=== PATIENT | female | born 1980 | race Caucasian/White ===

== ENCOUNTER 2022-09-17 07:21 | Observation (INO) ==
--- NOTE | 2022-09-10 13:58 | Anesthesiology Consultation ---
Date of Service September 10, 2022 Assessment & Plan (1) Encounter for pre-operative examination: Plan - COVID screening: Per kiln mechanic on 09/10/2022: Travel screen negative, no known COVID-19 positive contacts or current COVID-19 related symptoms in past 2 weeks. To surgeon's discretion if preop COVID testing is needed. Chart Review Chart Review: Acceptable Risk for Surgery and Patient NOT seen in Pre Admission Testing History Surgery Operation Date: 09/17/22 07:15 Proposed Procedures p Bilateral Simple Mastectomy, - Devaughn Higgins MD s Right Sided Axillary [place] Lymph Node Biopsy - Devaughn Higgins MD s Breast Augmentation - Alba Betancur MD Height/Weight Height: 5 ft 3 in Weight: 58.06 kg Allergies Allergy/AdvReac Type Severity Reaction Status Date / Time adhesive AdvReac Intermediate skin Verified 09/10/22 13:26 irritation Medications Home Medications Medication Instructions Recorded Confirmed Last Taken aprepitant 80 mg capsule (Emend) 40 mg PO DAILY 1 day #1 cap 09/08/22 09/10/22 Unknown cephalexin 500 mg capsule 500 mg PO TID 2 weeks #42 caps 09/08/22 09/10/22 Unkno wn oxycodone-acetaminophen 5 mg-325 1 tab PO Q4H PRN pain #18 tabs 09/08/22 09/10/22 Unknown mg tablet (Endocet) ibuprofen 200 mg tablet (Advil) 200 mg PO BID PRN cramping 09/10/22 09/10/22 U nknown Past Medical History Medical History Cancer of right breast July 2022 History of COVID-19 asymptomatic December 2021 Past Family History Family History Mother Breast cancer Grandmother (Maternal) Ovarian cancer Grandmother (Paternal) Breast cancer Other No family history of adverse response to anesthesia Past Surgical History Surgical History Delivery by section History of breast biopsy bilateral History of tonsillectomy Social History Smoking Status: Former smoker tobacco type: e-cigarettes Do You Dip or Chew Tobacco: No Smoking End Date: 08/17/22 Hx Alcohol Use: Yes Alcohol type: beer alcohol intake frequency: holidays/special occasions only Hx Substance Use: Yes (occasional marijuana) substance use type: marijuana Last Used Substance Other:: 09/03/22 Lab Results Anesthesia Preop Results Results Anesthesia Widget: WBC 6.08 K/ul (4.8-10.8) 09/08/22 Hgb 12.9 g/dl (12.0-16.0) 09/08/22 Hct 38.0 % (34.1-44.9) 09/08/22 Plt 225 K/uL (130-400) 09/08/22 Na 138 mmol/L (136-145) 09/08/22 K 3.9 mmol/L (3.5-5.1) 09/08/22 Cl 106 mmol/L (98-107) 09/08/22 CO2 27 mmol/L (21-32) 09/08/22 BUN 14 mg/dl (6-23) 09/08/22 Creat 0.67 mg/dl (0.6-1.2) 09/08/22 Glucose Level 85 mg/dl (70-99(Fasting)) 09/08/22 PT 10.9 Seconds (9.0-12.0) 09/08/22 PTT 26.1 Seconds (21.0-31.0) 09/08/22 INR 1.0 (0.9-1.1) 09/08/22
[~2022-09-17 07:21] MED LIST: LR 15ML/HR IV SCH; ceFAZolin 2000MG 2,000 MG/15 ML SYR IV SCH
[2022-09-17] MEDS: ENOXAPARIN INJ 30 MG/0.3 ML SYR SQ SCH (08:12)
--- NOTE | 2022-09-17 09:26 | History & Physical Bridge Note ---
Date of Service September 17, 2022 History & Physical Bridge Note I have examined the patient, reviewed the History & Physical and in the interval since the performance of the History & Physical I have noted the following changes of clinical significance: no changes noted
[2022-09-17] MEDS ORDERED: CISATRACURIUM BESYLATE IV SOLN 2 MG/ML 10 ML VIAL IV ONE (10:11)
[2022-09-17] MEDS ORDERED: PROPOFOL IV EMULSION 10 MG/ML 20 ML VIAL IV ONE (10:11)
[2022-09-17] MEDS ORDERED: MIDAZOLAM HCL 1 MG/ML 2ML VIAL ONE (10:12)
[2022-09-17] MEDS ORDERED: fentaNYL citrate 100 MCG/2 ML VIAL ONE ×3 (10:12→12:38)
[2022-09-17] MEDS ORDERED: GENTAMICIN SULFATE 40 MG/ML 2 ML VIAL ONE (10:37)
[2022-09-17] MEDS ORDERED: LIDOCAINE 1%/EPINEPHRINE 1:100,000 50 ML VIAL ONE (10:38)
[2022-09-17] MEDS ORDERED: ceFAZolin 330 MG/ML 1 GM VIAL ONE (10:38)
[2022-09-17] MEDS ORDERED: METHYLENE BLUE 0.5% 10 ML VIAL ONE (10:38)
[2022-09-17] MEDS ORDERED: BUPIVACAINE 0.25% 30 ML VIAL ONE (10:38)
[2022-09-17] MEDS ORDERED: BUPIVACAINE/EPINEPHRINE 0.5% MPF 1:200,000 30 ML VIAL ONE (10:54)
[2022-09-17] MEDS ORDERED: DEXAMETHASONE SOD INJ 4 MG/ML VIAL ONE (11:39)
[2022-09-17] MEDS ORDERED: ONDANSETRON INJ 2 MG/ML 2 ML VIAL ONE (11:39)
--- NOTE | 2022-09-17 14:03 | Post Operative Brief Note ---
Immediate Post Op Note v1 Date of Surgery September 17, 2022 Pre & Post Diagnosis Operation Date: 09/17/22 10:00 Pre-Op Diagnosis: Ductal Carcinoma in Situ of Right Breast I identified the patient and participated in the time-out.: Yes Procedure Operation Date: 09/17/22 10:00 Actual Procedures p Bilateral Simple Mastectomy, Right Sided Axillary [place] Lymph Node Biopsy(Bilateral) - Devaughn Higgins MD s Bilateral First Stage Immediate Breast Reconstruction with Tissue Expanders and Acellular Dermal Matrix(Bilateral) - Alba Betancur MD Surgeon Devaughn Higgins MD Forest Ecologist Cookie Fernandez PA-C; assisted with tissue retraction and exposure Estimated Blood Loss 10 Findings Consistent with Post-Op Diagnosis
--- NOTE | 2022-09-17 14:11 | Operative Report ---
Post Operative Report Pre & Post Diagnosis Operation Date: 09/17/22 10:00 Pre-Op Diagnosis: Ductal Carcinoma in Situ of Right Breast I identified the patient and participated in the time-out.: Yes Procedure Operation Date: 09/17/22 10:00 Actual Procedures p Bilateral Simple Mastectomy, Right Sided Axillary [place] Lymph Node Biopsy(Bilateral) - Devaughn Higgins MD s Bilateral First Stage Immediate Breast Reconstruction with Tissue Expanders and Acellular Dermal Matrix(Bilateral) - Alba Betancur MD Surgeon Devaughn Higgins MD Parts Classifier Cookie Fernandez PA-C; assisted with tissue retraction and exposure Estimated Blood Loss 10 Findings Consistent with Post-Op Diagnosis [place] node x1 right axilla Specimens Left breast mastectomy Right breast mastectomy Right axillary sentinel lymph node -count 1590 Anesthesia Type General Complications No immediate complications Description of Procedure Patient taken to the operating room, placed supine on the operating table. A timeout was performed, perioperative antibiotics were administered, SCD boots were placed. After adequate anesthesia and analgesia was obtained, a Ignacio catheter was placed, and the bilateral chest and axilla was prepped and draped in the normal sterile fashion. The incision lines for the bilateral mastectomy had been marked in the preoperative area. Local anesthetic was injected into and around the incision sites in the bilateral breast. We began on the left. Incision was made with 15 blade scalpel and the ellipse that had been previously marked. Flaps were raised between the breast tissue and the overlying subcutaneous tissue. This was done at 363 fashion. The limits of the dissection were the clavicle/pectoralis major muscle superiorly, the sternum medially, the fascia of the rectus abdominis muscle inferiorly, and the axillary fat pad laterally. Small bleeders were clamped and tied with 3-0 silk suture. Once dissection was complete, the breast tissue was removed from the underlying pectoralis major muscle, taking care to remove the pectoralis fascia along with the specimen. It was removed from body, oriented with sutures and ink, and sent off field for specimen. Attention was turned to hemostasis which was excellent. Some additional tissue was taken and spots of thickening on the flaps. These were sent off with the specimen. Attention was turned to the right axilla. Incision was made in a transverse fashion with a 15 blade scalpel. The level of the clavipectoral fascia was attained, and this was entered. A self-retaining retractor was placed. Using the neoprobe, I was able to identify the sentinel node. This was dissected free circumferentially, the lymphatics were clamped, and it was removed from the body. Lymphatics were tied with 3-0 silk suture. The lymph node count was 1590. The background radiation was less than 20. No palpable lymph nodes were noted in the axilla. No further lymph nodes were taken. We then turned our attention to the right breast. Incision was made with 15 blade scalpel and the ellipse that had been previously marked. Flaps were raised between the breast tissue and the overlying subcutaneous tissue. This was done at 363 fashion. The limits of the dissection were the clavicle/pecto ralis major muscle superiorly, the sternum medially, the fascia of the rectus abdominis muscle inferiorly, and the axillary fat pad laterally. Small bleeders were clamped and tied with 3-0 silk suture. Once dissection was complete, the breast tissue was removed from the underlying pectoralis major muscle, taking care to remove the pectoralis fascia along with the specimen. It was removed from body, oriented with sutures and ink, and sent off field for specimen. Attention was turned to hemostasis which was excellent. Some additional tissue was taken and spots of thickening on the flaps. These were sent off with the specimen. At this point, the case was turned over to Dr. Betancur of plastic surgery who commenced with bilateral breast reconstruction. The details of this operation will be dictated in a separate operative note. At the end of the mastectomy portion of the surgery, all instrument needle and sponge counts were correct. My corporate legal assistant was necessary throughout the procedure for tissue retraction, possible camera operation, and closure of the wounds. I understand that section 1842(b)(7)(D) of the Social Security act generally prohibits Medicare physician fee schedule payment for the services of assistants at surgery in teaching hospitals when qualified residents are available to furnish such services. I certify that the services for which payment is claimed were medically necessary and that no qualified resident was available to perform the services. I further understand that these services are subject to postpayment review by the Medicare carrier. I attest to the content of the Intraoperative Record and any orders documented therein. Any exceptions are noted below.
[2022-09-17] MEDS ORDERED: ceFAZolin SPECIAL PROCEDURE STOCK 1 GM ADDVIAL IV ONE (15:31)
--- NOTE | 2022-09-17 16:09 | Post Operative Brief Note ---
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 Post-Op Diagnosis: Ductal Carcinoma in Situ of Right Breast I identified the patient and participated in the time-out.: Yes Procedure Operation Date: 09/17/22 10:00 Actual Procedures p Bilateral Simple Mastectomy, Right Sided Axillary [place] Lymph Node Biopsy(Bilateral) - Devaughn Higgins MD s Bilateral First Stage Immediate Breast Reconstruction with Tissue Expanders and Acellular Dermal Matrix(Bilateral) - Alba Betancur MD Surgeon Alba Betancur MD Art Display Maker Cookie Fernandez PA-C; assisted with tissue retraction and exposure Estimated Blood Loss 15 Findings Consistent with Post-Op Diagnosis mild ecchymosis right superior flap Specimens Specimen Description: A. Left breast tissue, long stitch lateral, short superior, ink margin deep B. Right axillary sentinel lymph node C. Right breast tissue, long stitch lateral, short superior, ink margin deep Drains Ignacio Catheter and Mando-Berumen Drain (bilateral breasts) Anesthesia Type General Complications none
[2022-09-17] MEDS ORDERED: DROPERIDOL 5 MG/2 ML VIAL IV STA (16:16)
--- NOTE | 2022-09-17 16:19 | Operative Report ---
PG Post Operative Report Pre & Post Diagnosis Operation Date: 09/17/22 10:00 Pre-Op Diagnosis: Ductal Carcinoma in Situ of Right Breast Post-Op Diagnosis: Ductal Carcinoma in Situ of Right Breast I identified the patient and participated in the time-out.: Yes Procedure Operation Date: 09/17/22 10:00 Actual Procedures p Bilateral Simple Mastectomy, Right Sided Axillary [place] Lymph Node Biopsy(Bilateral) - Devaughn Higgins MD s Bilateral First Stage Immediate Breast Reconstruction with Tissue Expanders and Acellular Dermal Matrix(Bilateral) - Alba Betancur MD Surgeon Alba Betancur MD Grain I Farmworker Cookie Fernandez PA-C; assisted with tissue retraction and exposure Estimated Blood Loss 15 Findings Consistent with Post-Op Diagnosis Specimens none Drains JPx2 Anesthesia Type General Complications none Indications s/p bilateral mastectomies desiring breast reconstruction Description of Procedure The patient was marked in the preoperative area. Skin sparing mastectomy flaps were marked. She underwent bilateral mastectomy and right SLN biopsy with Dr. Higgins. After completion of the mastectomies, I began the bilateral reconstruction. I began with the left side. Hemostasis was achieved with electrocautery. Pectoralis major muscle was then identified and elevated. Inferior attachments of pectoralis major muscle were divided along the ribs medially to the sternum. None of the sternal attachments were dissected. The retropectoral plane was then developed using electrocautery. Hemostasis was achieved using cautery. Once adequate dissection had been performed, I then chose a piece of perforated medium contour thick AlloDerm which was then used to create a sling for the lower pole. This was first sutured to the inframammary fold using 2-0 Vicryl U stitches. Pocket was then measured and base diameter was 11 cm. Therefore, I selected a Allergan style 133SMVT tissue with base diameter of 11 cm, fill volume 250 cc. The supply assistant was prepared and air was aspirated out. The supply assistant was soaked in antibiotic irrigation and Vashe wash followed by antibiotic irrigation was used to irrigate the pocket. All instruments were wiped down and gloves were changed. Coach Cleaner was placed along the inframammary fold as medially as possible. Suture tabs were sutured down to underlying periosteum and fascia using a 2-0 Vicryl suture. The remainder of the supply assistant was then enclosed using 2-0 Vicryl running suture to reapproximate the AlloDerm which had been trimmed to size and this was approximated to the pectoralis major muscle. Laterally, this was closed down using 2-0 Vicryl interrupted sutures as well. A 15-[place] Amilcar drain was placed in the wound and brought out through a separate stab incision.Wound was reapproximated using 3-0 PDS superficial dermal suture and 3-0 Monocryl running subcuticular suture. Drain was sutured in place using 3-0 nylon. The fill port was identified using the magna-finder and accessed using a Fourte needle. A total of 75 mL were placed. An identical procedure was performed on the right side. The right axillary incision was closed using 2-0 vicryl deep dermal suture, 3-0 PDS superficial dermal suture, 3-0 monocryl running subcuticular suture. Dermabond was applied to the axillary incision. The drain site was dressed using Acticoat dry dressing and Tegaderm. Prevena Hawa vac dressings were placed bilaterally. Procedure was tolerated well. Cookie Fernandez PA-C was present and scrubbed throughout the entire procedure and was instrumental in providing exposure during elevation of pectoralis muscle and suturing of the AlloDerm as well as filling expanders and assisting in wound closure. I attest to the content of the Intraoperative Record and any orders documented therein. Any exceptions are noted below.
[2022-09-17] MEDS ORDERED: PHENYLEPHRINE 100MCG/ML 5ML SYR IV PRN (16:25)
[2022-09-17] MEDS ORDERED: ePHEDrine sulfate 50 MG/ML AMP IV PRN (16:25)
[2022-09-17] MEDS ORDERED: LABETALOL HCL IV 5 MG/ML 20ML IV PRN (16:25)
[2022-09-17] MEDS ORDERED: HYDROmorphone INJ 1 MG/ML SYRINGE IV PRN (16:25)
[2022-09-17] MEDS ORDERED: ATROPINE SULFATE 0.1 MG/ML 10ML SYR IV PRN (16:25)
[2022-09-17] MEDS ORDERED: PROMETHAZINE HCL 12.5 MG in SODIUM CHLORIDE 0.9% 50 ML IV STA (16:31)
[2022-09-17] MEDS ORDERED: PROMETHAZINE HCL INJ 25 MG/ML 1 ML VIAL ONE (16:33)
[2022-09-17] MEDS ORDERED: SODIUM CHLORIDE 0.9% 50 ML BAG ONE (16:33)
[2022-09-17] MEDS: fentaNYL citrate 100 MCG/2 ML VIAL IV PRN ×4 (16:49→17:04)
--- NOTE | 2022-09-17 17:36 | Anesthesiology Progress Note ---
Date of Service September 17, 2022 Anesthesia Post Procedure Vital Signs Vital Signs: Temp Pulse Resp BP BP Pulse Ox O2 Del Method 09/17/22 17:15 72 12 117/81 98 Room Air 09/17/22 17:05 36.4 C L 73 12 120/80 100 Room Air 09/17/22 16:55 81 12 112/79 100 Room Air 09/17/22 16:45 82 17 119/80 100 Oxymask 09/17/22 16:35 85 18 115/76 100 Oxymask 09/17/22 16:25 87 17 110/74 100 Oxymask 09/17/22 16:16 36.0 C L 91 H 13 126/78 100 Oxymask 09/17/22 07:47 37 C 75 20 134/84 99 Room Air O2 Flow Rate 09/17/22 17:15 09/17/22 17:05 09/17/22 16:55 09/17/22 16:45 4 09/17/22 16:35 4 09/17/22 16:25 4 09/17/22 16:16 6 09/17/22 07:47 Pain Intensity Bilateral Breast: Pain Intensity: 2 Transfer of Care Handoff Completed per policy Notes Mental Status: alert / awake / arousable Patient Amnestic to Procedure: Yes Nausea / Vomiting: adequately controlled Pain: adequately controlled Airway Patency, RR, SpO2: stable & adequate BP & HR: stable & adequate Hydration State: stable & adequate Anesthetic Complications: no major complications apparent and Pt Satisfied with anesthetic care
[2022-09-17] MEDS ORDERED: oxyCODONE/ACETAMINOPHEN 5mg/325mg TAB PO PRN (18:00)
[2022-09-17] MEDS ORDERED: ONDANSETRON INJ 2 MG/ML 2 ML VIAL IV PRN (18:00)
[2022-09-17] MEDS ORDERED: diphenhydrAMINE 50 MG/ML VIAL IV PRN (18:00)
[2022-09-17] MEDS ORDERED: diphenhydrAMINE Capsule 25 MG CAP PO PRN (18:00)
[2022-09-17] MEDS ORDERED: MoRPHine SULFATE 2 MG/ML CARP IV PRN (18:00)
[2022-09-17] MEDS ORDERED: LORazepam 0.5 MG TAB PO PRN (18:00)
[2022-09-17] MEDS ORDERED: ACETAMINOPHEN 325 MG TAB PO PRN (18:00)
[2022-09-17] MEDS ORDERED: PROMETHAZINE HCL 12.5 MG in SODIUM CHLORIDE 0.9% 50 ML IV PRN (18:00)
[2022-09-17] MEDS: ceFAZolin 2000MG 2,000 MG/15 ML SYR IV SCH (18:39)
[2022-09-17] MEDS: D5W AND 1/2NSS + 20MEQ KCL 20 MEQ/1,000 ML BAG IV SCH (18:41)
[2022-09-17] MEDS: MoRPHine SULFATE 4 MG/ML 1 ML CARP\\VIAL IV PRN ×2 (19:39→22:29)
[2022-09-18] MEDS: ceFAZolin 2000MG 2,000 MG/15 ML SYR IV SCH (01:55)
[2022-09-18] MEDS: oxyCODONE/ACETAMINOPHEN 5mg/325mg TAB PO PRN ×2 (02:02→07:40)
[2022-09-18] MEDS: ENOXAPARIN INJ 30 MG/0.3 ML SYR SQ SCH (05:57)
[2022-09-18] MEDS: D5W AND 1/2NSS + 20MEQ KCL 20 MEQ/1,000 ML BAG IV SCH (07:41)
--- NOTE | 2022-09-18 08:52 | Surgery Progress Note ---
Date of Service September 18, 2022 Assessment & Plan (1) Encounter for breast reconstruction following mastectomy: Plan: Olivia is 1 day s/p Bilateral Simple Mastectomy, Right Sided Axillary [place] Lymph Node Biopsy with Dr. Devaughn Higgins and Bilateral First Stage Immediate Breast Reconstruction with Tissue Expanders and Acellular Dermal Matrix with Dr. Betancur. She reports that she is sore, which she was reassured is expected. She was able to get her post-op pain medication and her post-op antibiotic, which she will begin today. She is aware that she will be discharged with both drains (she will continue to monitor and record output daily) and Prevena wound vacs in place. She is aware that she is not allowed to shower until instructed by our office. She is ok for discharge to home. Restrictions were reviewed. Return precautions reviewed. She is to follow-up in our office early next week. She was encouraged to call with any questions or concerns. Admission and Anticipated Discharge Date Admission Date: September 17, 2022 Subjective Olivia is resting comfortable in bed with significant other at bedside. She reports that she is sore. She also notes that is hungry. She states that overnight her wound vac started to make noise, but states that her nurse, Cande, fixed that and wound vac is now holding suction well. She denies any post-op nausea. Physical Exam Physical Exam: Prevena ines wound vacs in place and holding suction well. No alarm on wound vac going off. Bilateral drains in place. No signs of active bleeding on exam. Drain output has been 85cc from right breast since surgery and 70cc from left breast since surgery. Constitutional: WD/WN, vitals as above Respiratory: normal respiratory effort; no respiratory distress and no labored breathing Cardiovascular: RRR, no murmur, no edema Results & Data ([facility]) Vital Signs (Past 12 Hours) Vital Signs Temp Pulse Resp BP Pulse Ox O2 Del Method 09/18/22 07:28 36.7 C 70 16 116/75 99 Room Air 09/18/22 01:44 36.7 C 72 14 121/76 100 Room Air 09/17/22 21:33 36.7 C 82 14 114/73 98 Room Air PG Care Time/CCT Total # of Minutes Spent Total Time Spent with Patient: Total time spent is greater than 50% in coordination of care (as documented) at patient's floor/unit and/or counseling patient: Coding Level of Care Code None Diagnoses Encounter for breast reconstruction following mastectomy Z42.1
[2022-09-18] MEDS ORDERED: MULTIVITAMIN TAB PO SCH (09:00)
--- NOTE | 2022-09-18 09:50 | Surgery Progress Note ---
Date of Service September 18, 2022 Assessment & Plan (1) Encounter for breast reconstruction following mastectomy: Plan: Olivia is 1 day s/p Bilateral Simple Mastectomy, Right Sided Axillary [place] Lymph Node Biopsy with Dr. Devaughn Higgins and Bilateral First Stage Immediate Breast Reconstruction with Tissue Expanders and Acellular Dermal Matrix with Dr. Betancur. She is doing very well. Will be d/c to home today with wound vac in place. F/U with Dr. Bteancur as scheduled. F/U with me in the office in 2 weeks. Will call with path report. She will call with any questions or concerns. Admission and Anticipated Discharge Date Admission Date: September 17, 2022 Subjective doing well; no complaints. tolerating diet. no nausea/vomiting. no fevers Physical Exam Physical Exam: A&Ox3; NAD Wound vac in place bilaterally; SADE drains with serosanguinous drainage dressings clean/dry/intact Results & Data ([facility]) Vital Signs (Past 12 Hours) Vital Signs Temp Pulse Resp BP Pulse Ox O2 Del Method 09/18/22 07:28 36.7 C 70 16 116/75 99 Room Air 09/18/22 01:44 36.7 C 72 14 121/76 100 Room Air
--- NOTE | 2022-09-22 12:12 | Discharge Summary ---
Date of Service September 22, 2022 Admission HPI Per Admitting Provider Please see admission History and Physical. Principal Diagnosis Ductal Carcinoma in Situ of Right Breast Discharge Exam Prevena ines wound vacs in place and holding suction well. No alarm on wound vac going off. Bilateral drains in place. No signs of active bleeding on exam. Drain output has been 85cc from right breast since surgery and 70cc from left breast since surgery. Constitutional WD/WN, vitals as above Respiratory normal respiratory effort; no respiratory distress and no labored breathing Cardiovascular RRR, no murmur, no edema Discharge Data Allergies Allergy/AdvReac Type Severity Reaction Status Date / Time adhesive AdvReac Intermediate skin Verified 09/17/22 07:49 irritation Procedures Performed Operation Date: 09/17/22 10:00 Actual Procedures p Bilateral Simple Mastectomy, Right Sided Axillary [place] Lymph Node Biopsy(Bilateral) - Devaughn Higgins MD s Bilateral First Stage Immediate Breast Reconstruction with Tissue Expanders and Acellular Dermal Matrix(Bilateral) - Alba Betancur MD Hospital Course (1) Encounter for breast reconstruction following mastectomy: (2) Ductal carcinoma in situ of right breast: Erendira Baker is a 41-year-old female with diagnosis of Ductal Carcinoma in situ of the right breast. She was taken to the OR and underwent Bilateral Simple Mastectomy, Right Sided Axillary [place] Lymph Node Biopsy with Dr. Devaughn Higgins immediately followed by Bilateral First Stage Immediate Breast Reconstruction with Tissue Expanders and Acellular Dermal Matrix with Dr. Alba Betancur. There were no intraoperative complications. She was taken to recovery and trasnferred to med/surg for observation. On POD #1 she was feeling a bit sore, but was overall doing well. She was tolerating a regular diet, voiding on her own, and ambulating without issue. On exam, her vital signs were stable. Prevena ines wound vac was in place and was holding excellent suction. Drains x [address] with serosang[address] drainage. Discharge instructions were reviewed with both her and her significant other who was at bedside. Dr. Devaughn Higgins was also able to see patient on POD #1. He felt that she was able to be discharged to home with follow-up appt with him in 2 weeks. He plans to call her with pathology report. She will follow-up in our [facility] office. All questions were answered and she was discharged to home. Total Time Total Time Spent Total Time Spent (In Minutes): 15 Discharge Plan Discharge Items Patient Disposition: Home - Self-Care Reason For Visit: Ductal Carcinoma in Situ DCIS of Right Breast Discharge Diagnosis: Ductal Carcinoma in Situ DCIS of Right Breast Activity: As commented below Non-emergency contact: Surgeon Call non-emergency contact if: you have any medication questions, your pain is not controlled, your temperature is above 101.5, your wound has increased redness and your wound has increased drainage Follow-up/Referrals: Brenna Staton PA-C [Primary Care Provider] - Diet: Regular Addtl Attending Provider Instructions: ACTIVITY RECOMMENDATIONS: __Normal activities X__No bending, lifting or straining __No driving _X_Driving allowed when you are off pain medications X__Walking permitted __You should have help at home for ___ days DRESSINGS: __No dressings required _X_Keep dressings dry/in place __Remove dressings ___ and leave dressings off __Apply ice ___ days __Remove dressings and reapply garment __Apply antibiotic ointment (Bacitracin, Neosporin, etc) to wounds 3-4 times/day for 10 days BATHING: _X_Keep dressings dry _X_Sponge bathing permitted, but please keep surgical area, including drain insertion sites dry. __Showering permitted _X_No swimming, hot tubs or soaking in a tub MEDICATIONS: Resume previous medications unless instructed otherwise by your surgeon. X__Do not use aspirin, Motrin, Advil or Ibuprofen as these may promote bleeding. Please use Tylenol. X__Prescription(s) provided: Prescription for both pain medication and post-op antibiotic sent to pharmacy following your last office visit. Please use both as prescribed. OTHER INSTRUCTIONS: _X_Record drain output 2-3 times per day SPECIAL CARE INSTRUCTIONS: * It is normal to have a mild fever after surgery. If your temperature is higher than 101.5 degrees F, please call the office at [phone]. * Constipation is a typical side effect of pain medication. An [id number] stool softener will help relieve this. * Leaking around surgical drains may occur and should not cause concern. Sometimes these drains become clogged. If this happens, remove the bulb and milk the clot out of the tube, then replace the bulb. * Drainage from wounds after liposuction is normal and should be expected. Garments will become soiled. You should protect furniture and bedding. This drainage should mostly subside within 2-3 days. Leave garments in place unless instructed to remove them. * If you have unusual drainage from a wound or are concerned you have an infection or have any questions or concerns, please call the office at [phone]. FOLLOW UP VISIT: If not already scheduled, please call the office, , when you return home after surgery to schedule an appointment to be seen. Pending Studies at Discharge: Yes Studies:: Pathology report. Stand-Alone Forms: [facility], Pain - Opioid Pain Management, Smoking Cessation Medications and DC Order Prescriptions: Continued aprepitant [Emend] 80 mg capsule 40 mg PO DAILY 1 Days Qty: 1 0RF Rx Instructions: take tablet immediately prior to walking into surgery center with a small sip of water oxycodone-acetaminophen [Endocet] 5-325 mg tablet 1 tab PO Q4H PRN (Reason: pain) Qty: 18 0RF Rx Instructions: initial therapy Dr. Betancur, [id number] cephalexin 500 mg capsule 500 mg PO TID 14 Days Qty: 42 1RF Discontinued ibuprofen [Advil] 200 mg Tablet 200 mg PO BID PRN (Reason: cramping) Discharge Orders: Discharge Order (Routine); Ordered 09/18/22 Ordered By: Sara Calderon/Other Patient Handouts: DVT Post Op Prevention, Mastectomy with Reconstruction Admission Data Admit Date/Time: 09/17/22 16:16 Attending Provider: Alba Betancur Admit Provider: Alba Betancur Primary Care Provider: Brenna Staton Other Interventions: Discharge Summary Assessment (RN) Last Done: 09/18/22 10:32 Supervising Physician Co-Signing Physician Notes Dr. Alba Betancur. Coding Level of Care Code 60605 OBS Care - Discharge Diagnoses Encounter for breast reconstruction following mastectomy Z42.1 Ductal carcinoma in situ of right breast D05.11
== END 2022-09-18 11:29 | disposition home or self-care (01) ==
LOC: ASU 07:21 → PACUINP 07:21 → 3W 17:58
DX: D24.2 Benign neoplasm of left breast; Z85.3 Personal history of malignant neoplasm of breast; D05.01 Lobular carcinoma in situ of right breast; Z79.899 Other long term (current) drug therapy; Z86.16 Personal history of COVID-19; Z42.1 Encounter for breast reconstruction following mastectomy; Z87.891 Personal history of nicotine dependence; Z91.048 Other nonmedicinal substance allergy status